=== PATIENT | female | born 1975 | race American Indian/Alaskan Native ===

== ENCOUNTER 2020-11-09 13:53 | Emergency (ER) | payer SELFPAY ==
[2020-11-09 14:16] VITALS: BP 116/70
--- NOTE | 2020-11-09 14:43 | Emergency Department Report ---
- General Chief complaint: Skin Rash Stated complaint: NO TASTE/LEG/SKIN PAIN Time Seen by Provider: 11/09/20 14:33 Source: patient Mode of arrival: Ambulatory Limitations: No Limitations - History of Present Illness Initial comments: pt is a 45 yo female who presents to the ED with c/o a diffuse rash that began 09/16/2020. she states she has been to urgent care and another emergency department for treatment. she states it has been about three weeks since she has been seen. she has not followed up with a driver recruiter or a primary care doctor. she denies any new soaps, lotions, detergents, foods, medications. she denies any known allergies. she denies any medication allergies. pt states that her eyes are also irritated and watering. she denies getting anything into the eyes. she denies any vision changes. PMHx DDD. LNMP 2 weeks ago. - Related Data Previous Rx's Medication Instructions Recorded Last Taken Type Ketotifen Fumarate 1 drop OP BID #1 bottle 11/09/20 Unknown Rx Triamcinolone 0.1% [Kenalog 0.1% 1 applic TP TID #1 tube 11/09/20 Unknown Rx CREAM] hydrOXYzine HCL [Atarax] 25 mg PO Q6HR PRN #20 tablet 11/09/20 Unknown Rx predniSONE [Deltasone] 20 mg PO DAILY 9 Days #18 tablet 11/09/20 Unknown Rx Allergies Allergy/AdvReac Type Severity Reaction Status Date / Time No Known Allergies Allergy Unverified 11/09/20 14:13 Abscess Boil HPI - HPI Chief Complaint: Skin Rash Stated Complaint: NO TASTE/LEG/SKIN PAIN Time Seen by Provider: 11/09/20 14:33 Home Medications: Previous Rx's Medication Instructions Recorded Last Taken Type Ketotifen Fumarate 1 drop OP BID #1 bottle 11/09/20 Unknown Rx Triamcinolone 0.1% [Kenalog 0.1% 1 applic TP TID #1 tube 11/09/20 Unknown Rx CREAM] hydrOXYzine HCL [Atarax] 25 mg PO Q6HR PRN #20 tablet 11/09/20 Unknown Rx predniSONE [Deltasone] 20 mg PO DAILY 9 Days #18 tablet 11/09/20 Unknown Rx Allergies/Adverse Reactions: Allergies Allergy/AdvReac Type Severity Reaction Status Date / Time No Known Allergies Allergy Unverified 11/09/20 14:13 ED Review of Systems ROS: Stated complaint: NO TASTE/LEG/SKIN PAIN Other details as noted in HPI Comment: All other systems reviewed and negative ED Past Medical Hx - Past Medical History Previous Medical History?: No - Surgical History Past Surgical History?: Yes Additional Surgical History: appendectomy - Social History Smoking Status: Current Every Day Smoker Substance Use Type: Alcohol - Medications Home Medications: Home Medications Medication Instructions Recorded Confirmed Last Taken Type Ketotifen Fumarate 1 drop OP BID #1 bottle 11/09/20 Unknown Rx Triamcinolone 0.1% [Kenalog 0.1% 1 applic TP TID #1 tube 11/09/20 Unknown Rx CREAM] hydrOXYzine HCL [Atarax] 25 mg PO Q6HR PRN #20 tablet 11/09/20 Unknown Rx predniSONE [Deltasone] 20 mg PO DAILY 9 Days #18 tablet 11/09/20 Unknown Rx ED Physical Exam - General Limitations: No Limitations General appearance: alert, in no apparent distress - Head Head exam: Present: atraumatic, normocephalic - Eye Eye exam: Present: PERRL, EOMI, conjunctival injection (bilaterally mild, watering ). Absent: periorbital swelling, periorbital tenderness Pupils: Present: normal accommodation - ENT ENT exam: Present: mucous membranes moist - Respiratory Respiratory exam: Absent: respiratory distress, accessory muscle use - Neurological Exam Neurological exam: Present: alert, oriented X3 - Psychiatric Psychiatric exam: Present: normal affect, normal mood - Skin Skin exam: Present: warm, dry, rash (diffuse maculopapular rash, no blistering, no skin denuding, no necrosis, no signs of infection) ED Course Vital Signs 11/09/20 14:14 Temperature 98.2 F Pulse Rate 109 H Respiratory 18 Rate Blood Pressure 116/70 O2 Sat by Pulse 99 Oximetry ED Medical Decision Making - Medical Decision Making pt is a 45 yo female who presents to the ED with c/o a diffuse rash that began 09/16/2020. she states she has been to urgent care and another emergency department for treatment. she states it has been about three weeks since she has been seen. she has not followed up with a driver recruiter or a primary care doctor. she denies any new soaps, lotions, detergents, foods, medications. she denies any known allergies. she denies any medication allergies. pt states that her eyes are also irritated and watering. she denies getting anything into the eyes. she denies any vision changes. PMHx DDD. LNMP 2 weeks ago. Vitals with mild tachycardia, otherwise stable. On exam: diffuse maculopapular rash, no blistering, no skin denuding, no necrosis, no signs of infection, bilaterally mild conjunctival injection, watering. Examination appears consistent with a diffuse nonspecific rash eruption, no signs of emergent skin condition. Appears to have allergic conjunctivitis bilaterally, no signs of bacterial conjunctivitis. Patient given prescription for triamcinolone, Zaditor eyedrops, Atarax, prednisone taper. Advised patient that she need to follow-up with a primary care doctor and likely needed referral to dermatology from PCP. Discussed the importance of follow-up. Discussed return precautions. Advised patient please use medication as prescribed. please follow up with a primary care doctor. it is very important that you follow up. return to the emergency room for any new or worsening symptoms. Critical care attestation.: If time is entered above; I have spent that time in minutes in the direct care of this critically ill patient, excluding procedure time. ED Disposition Clinical Impression: Rash Conjunctivitis Qualifiers: Conjunctivitis type: acute Acute conjunctivitis type: unspecified Laterality: bilateral Qualified Code(s): H10.33 - Unspecified acute conjunctivitis, bilater al Disposition: TO HOME OR SELFCARE Is pt being admited?: No Does the pt Need Aspirin: No Condition: Stable Instructions: Rash, Adult, Allergic Conjunctivitis, Adult Additional Instructions: please use medication as prescribed. please follow up with a primary care doctor. it is very important that you follow up. return to the emergency room for any new or worsening symptoms. Prescriptions: hydrOXYzine HCL [Atarax] 25 mg PO Q6HR PRN #20 tablet PRN Reason: Itching predniSONE [Deltasone] 20 mg PO DAILY 9 Days #18 tablet Triamcinolone 0.1% [Kenalog 0.1% CREAM] 1 applic TP TID #1 tube Ketotifen Fumarate 1 drop OP BID #1 bottle Referrals: DIXIE LIN MD [Staff Physician] - 3-5 Days [facility] [Provider Group] - 3-5 Days [facility], [LAB/CONTRACT] - 3-5 Days [facility] [Outside] - 3-5 Days Time of Disposition: 14:43 Print Language: TAJIK
== END 2020-11-09 16:26 | disposition home or self-care (01) ==
LOC: ED 13:53
DX: H10.9 Unspecified conjunctivitis (principal); R21 Rash and other nonspecific skin eruption; F17.200 Nicotine dependence, unspecified, uncomplicated; Z79.899 Other long term (current) drug therapy; Z90.49 Acquired absence of other specified parts of digestive tract
CPT/HCPCS: 99281